=== PATIENT | female | born 1985 | race Caucasian/White ===

== ENCOUNTER 2019-06-27 06:00 | Outpatient (RCR) | payer MEDICARE, MEDICAID, SELFPAY | END 2019-07-27 00:01 | LOC: SPT 06:00 | PROVIDERS: Family Provider Internal Medicine; Visit Provider Orthopaedic Surgery | DX: M76.52 Patellar tendinitis, left knee (principal) | CPT/HCPCS: 97110 ×4; 97164 ==

== ENCOUNTER 2019-07-28 06:00 | Outpatient (RCR) | payer MEDICARE, MEDICAID, SELFPAY | END 2019-08-27 23:59 | disposition home or self-care (01) | LOC: SPT 06:00 | PROVIDERS: Family Provider Internal Medicine; PCP Internal Medicine; Visit Provider Orthopaedic Surgery | DX: M76.52 Patellar tendinitis, left knee (principal) ==

== ENCOUNTER → 2020-05-01 12:23 | Outpatient (BNVA) | payer MEDICARE, MEDICAID, SELFPAY | PROVIDERS: Family Provider Internal Medicine; PCP Internal Medicine; Visit Provider Internal Medicine Cardiovascular Disease | DX: E78.2 Mixed hyperlipidemia (principal); R25.2 Cramp and spasm; I49.9 Cardiac arrhythmia, unspecified; I10 Essential (primary) hypertension; R06.02 Shortness of breath | CPT/HCPCS: 80048; 80061; 80076; 82552 ==

== ENCOUNTER 2020-08-30 19:05 | Outpatient (CLI) | payer MEDICARE, MEDICAID, SELFPAY ==
[2020-09-01 15:08] LABS: Quest SARS-CoV-2 RNA NOT DETECTED (NOT DETECTED)
== END 2020-08-30 19:06 | disposition home or self-care (01) ==
PROVIDERS: PCP Internal Medicine; Visit Provider Family Medicine
DX: Z01.812 Encounter for preprocedural laboratory examination (principal)
CPT/HCPCS: 87635

== ENCOUNTER 2020-09-01 06:13 | Day surgery (SDC) | payer MEDICARE, MEDICAID, SELFPAY ==
[2020-08-30 13:16] VITALS: BMI 39.7
[2020-09-01 06:48] LABS: OR HCG Qualitative Urine Negative (Negative)
[2020-09-01 06:58] VITALS: BP 116/83; PULSE 84; RESP 18; TEMP 36.7; O2SAT 99
[2020-09-01] MEDS: sodium chloride 0.9% 1,000 ML 30 ML IV (07:15)
--- NOTE | 2020-09-01 07:20 | ANES.PREANE2 ---
Pre-Anesthetic Assessment Pre-Anesthetic Assessment: Height/Weight: Height 1.5 m Weight 89.358 kg Temp Pulse Resp BP Pulse Ox 98.1 F 84 18 116/83 99 09/01/20 06:58 09/01/20 06:58 09/01/20 06:58 09/01/20 06:58 09/01/20 06:58 Preop Diagnosis: polyps Proposed Procedure: Operation Date: 09/01/20 07:15 Proposed Procedures p Colonoscopy K63.5(Not Applicable) - Wilfrid Gama MD Familial anesthetic complications: None Was Beta Дмитрий taken within 24 hours: Yes Last intake: Intake Last Liquid Date 08/31/20 Last Solid Date 08/30/20 Social: Social History: No alcohol and No tobacco Exam: Pre-Anes Outpt Exam: alert, oriented x 3, clear to auscultation bilaterally and regular rate & rhythm Airway: Cervical ROM: WNL MP: 4 Dentition: Partials Additional comments: small mouth opening, large neck Pulmonary: Pulmonary: Sleep apnea CV/HEM: CV/HEM: HTN Comments: PVCs w/ palpitaiton on metoprolol Metabolic: Metabolic: Morbid obesity Neuropsych: Neuropsych: Seizure Anesthetic Plan: ASA status: 3 Anesthesia: MAC Risk of > 500 ml blood loss (7ml/kg in children): No Meds/Allergies Current Medications: Current Medications Generic Name Dose Route Start Last Admin Trade Name Freq PRN Reason Stop Dose Admin Sodium Chloride 1,000 mls @ 30 ml s/hr 09/01/20 06:45 09/01/20 07:15 Sodium Chloride 0.9% IV 09/02/20 06:44 30 mls/hr .Q24H JESSICA Administration PFSH Anesthesia PFSH: Medical History Chronic chest pain Colon polyps Depression GERD (gastroesophageal reflux disease) Hemorrhoid Hyperlipidemia Hypertension Muscle cramps Palpitations Seizure disorder Ventricular arrhythmia Surgical History History of dilation and curettage S/P thyroid surgery Family History Other CAD (coronary artery disease) Cancer Diabetes Hyperlipidemia Hypertension Social History Smoking and tobacco status: never smoked Alcohol intake: never Data Anesthesia Other Labs: Laboratory Results - last 48 hr 09/01/20 06:41 Urine HCG, Qual Negative Cardiac Studies: No Data to Display
--- NOTE | 2020-09-01 07:31 | PM.OPSURHP ---
Providers/Chief Complaint Admitting Physician: Wilfrid Gama Primary Care Provider: Kory Jacobson DO Chief Complaint: colonoscopy History of Present Illness Mara Shannon is a 35 year old female with a history of a colon polyps on a colonoscopy that was performed 5 years ago. Review of Systems General: Reports: 10 or more systems reviewed and unremarkable except in HPI and below Const: Denies: fever(s) Card: Denies: chest pain or irregular heart rhythm Resp: Denies: dyspnea Medications/Allergies Home Medications Medication Instructions Recorded Confirmed Last Taken Type metoprolol tartrate 50 mg tablet 50 mg PO BID #60 tab 09/16/19 09/01/20 08/31/20 Rx divalproex 500 mg tablet,delayed 500 mg PO TID tab 10/07/19 09/01/20 08/31/20 History release norgestimate 0.18 mg/0.215 mg/0.25 1 tab PO DAILY 10/19/19 09/01/20 08/31/20 History mg-ethinyl estradiol 25 mcg tablet sertraline 100 mg tablet 100 mg PO DAILY 10/19/19 09/01/20 08/31/20 History ezetimibe 10 mg tablet 10 mg PO DAILY #90 tab 05/04/20 09/01/20 08/31/20 Rx magnesium oxide 400 mg PO DAILY #90 tab 05/08/20 09/01/20 08/31/20 Rx simvastatin 80 mg tablet See Rx Instructions .ROUTE 08/21/20 09/01/20 08/31/20 Rx .COMPLEX #90 tab Allergies Allergy/AdvReac Type Severity Reaction Status Date / Time Penicillins Allergy Unknown unknown Verified 09/01/20 06:55 amoxicillin [From Augmentin] Allergy hives Verified 09/01/20 06:55 carbamazepine [From Tegretol] Allergy ADR-Seizure Verified 09/01/20 06:55 cephalexin Allergy ADR-Seizure Verified 09/01/20 06:55 clavulanic acid Allergy hives Verified 09/01/20 06:55 [From Augmentin] clindamycin Allergy ALGY-Hives Verified 09/01/20 06:55 cyclobenzaprine Allergy ADR-Itching Verified 09/01/20 06:55 topiramate [From Topamax] Allergy ADR-Seizure Verified 09/01/20 06:55 tramadol Allergy seizures Verified 09/01/20 06:55 PFSH PFSH: Medical History Chronic chest pain Colon polyps Depression GERD (gastroesophageal reflux disease) Hemorrhoid Hyperlipidemia Hypertension Muscle cramps Palpitations Seizure disorder Ventricular arrhythmia Surgical History History of dilation and curettage S/P thyroid surgery Family History Other CAD (coronary artery disease) Cancer Diabetes Hyperlipidemia Hypertension Social History Smoking and tobacco status: never smoked Alcohol intake: never Vital Signs Vitals Signs: Last Vital Signs Temp 98.1 F 09/01/20 06:58 Pulse 84 09/01/20 06:58 Resp 18 09/01/20 06:58 BP 116/83 09/01/20 06:58 Pulse Ox 99 09/01/20 06:58 Weight: Weight last 48 hrs Weight 197 lb Physical Exam Const: COMMON NORMALS: no acute distress and patient oriented x3 GENERAL APPEARANCE: cooperative, comfortable and well developed HENMT: COMMON NORMALS: normocephalic and moist oral mucous membranes HEAD & SCALP: normocephalic Chest: COMMONS NORMALS: normal inspection of the chest Resp: COMMON NORMALS: normal respiratory effort and clear to auscultation bilaterally AUSCULTATION: clear to auscultation bilaterally Cardio: COMMON NORMALS: regular rate, regular rhythm, No gallops present (Cardio), No murmurs present (Cardio) and No rub (Cardio) RATE: regular rate RHYTHM: regular rhythm Extremity: COMMON NORMALS: normal to inspection Neuro: COMMON NORMALS: patient oriented x3 and no focal motor deficits Skin: COMMON NORMALS: no rashes or lesions noted GENERAL SKIN EXAM: no rashes or lesions noted A&P Assessment and plan (1) History of colon polyps: We discussed the risk of bleeding, perforation, and sedation associated with a colonoscopy. The patient has no further questions and wishes to proceed. Status: Acute Coding Level of Care Code Acute Medical Collections Representative for [facility] Fwd Diagnoses History of colon polyps Z86.010
[2020-09-01 08:03] VITALS: BP 116/83; PULSE 84; RESP 18; TEMP 36.7; O2SAT 99
[2020-09-01 08:16] VITALS: BP 122/75; PULSE 70; RESP 18; O2SAT 96
--- NOTE | 2020-09-01 15:27 | ANE.PACU2 ---
Inpatient post-anesthesia follow up: Airway intact: Yes Vital signs: Temperature 98.1 F Pulse Rate 70 Respiratory Rate 18 Blood Pressure 122/75 Pulse Oximetry 96 Oxygen Delivery Me thod Room Air Oxygen Flow Rate Fraction of Inspir ed Oxygen Hydration adequate: Yes Nausea and vomiting: No Pain level: 1 Mental status: Baseline
== END 2020-09-01 08:23 | disposition home or self-care (01) ==
PROVIDERS: Anesthesiology; PCP Internal Medicine; Visit Provider Family Medicine
PROC: 0DJD8ZZ Inspection of Lower Intestinal Tract, Via Natural or Artificial Opening Endoscopic (ICD-10-PCS; CPT 45378; principal; 2020-09-01 07:15)
DX: K62.1 Rectal polyp (principal); Z86.010 Personal history of colon polyps; F32.9 Major depressive disorder, single episode, unspecified; K21.9 Gastro-esophageal reflux disease without esophagitis; E78.5 Hyperlipidemia, unspecified; I10 Essential (primary) hypertension; Z82.49 Family history of ischemic heart disease and other diseases of the circulatory system; Z83.3 Family history of diabetes mellitus; E66.01 Morbid (severe) obesity due to excess calories; G47.33 Obstructive sleep apnea (adult) (pediatric)
CPT/HCPCS: 12345; 45380; 84703; 88305; J2704; J7030

== ENCOUNTER → 2021-05-01 11:11 | Outpatient (BNVA) | payer MEDICARE, MEDICAID, SELFPAY | PROVIDERS: PCP Internal Medicine; Visit Provider Internal Medicine Cardiovascular Disease | DX: E78.2 Mixed hyperlipidemia (principal) | CPT/HCPCS: 80061 ==

== ENCOUNTER → 2021-10-31 13:58 | Outpatient (BNVA) | payer MEDICARE, MEDICAID, SELFPAY | PROVIDERS: PCP Internal Medicine; Visit Provider Internal Medicine Cardiovascular Disease | DX: E78.2 Mixed hyperlipidemia (principal); R06.02 Shortness of breath; I49.9 Cardiac arrhythmia, unspecified; R07.9 Chest pain, unspecified | CPT/HCPCS: 99213 ==

== ENCOUNTER 2022-04-15 13:54 | Outpatient (CLI) | payer MEDICARE, MEDICAID, SELFPAY ==
[2022-04-15 14:52] LABS: Basophils # 0.1 10^3/uL (0.0-0.1); Basophils % 0.9 %; Eosinophils # 0.1 10^3/uL (0.0-0.8); Eosinophils % 1.2 %; Hematocrit 44.5 % (37.0-47.0); Hemoglobin 14.5 g/dL (11.5-15.3); Lymphocytes # 2.3 10^3/uL (0.8-4.8); Lymphocytes % 30.1 %; Mean Corpuscular HGB Conc 32.6 g/dL (30.0-36.0); Mean Corpuscular Hemoglobin 28.9 pg (28.0-34.0); Mean Corpuscular Volume 88.6 fl (81-99); Mean Platelet Volume 9.8 fL (7.4-10.4); Monocytes # 0.6 10^3/uL (0.2-0.9); Monocytes % 7.4 %; Neutrophils # 4.52 10^3/uL (1.8-7.7); Nucleated Red Blood Cells % 0 %; Platelet Count 318 10^3/cmm (130-400); Red Blood Count 5.02 10^6/uL (4.1-5.3); Red Cell Distribution Width 12.7 % (12.1-15.1); White Blood Count 7.5 10^3/uL (4.0-10.0)
[2022-04-15 15:10] LABS: Valproic Acid Level 32.9 ug/mL (50-100)
== END 2022-04-15 13:55 | disposition home or self-care (01) ==
LOC: LAB 13:58
PROVIDERS: PCP Family Medicine; Visit Provider Psychiatry & Neurology Neurology
DX: G40.309 Generalized idiopathic epilepsy and epileptic syndromes, not intractable, without status epilepticus (principal)
CPT/HCPCS: 80164; 85025

== ENCOUNTER → 2022-04-24 09:34 | Outpatient (BNVA) | payer MEDICARE, MEDICAID, SELFPAY | PROVIDERS: PCP Family Medicine; Visit Provider Internal Medicine Cardiovascular Disease | DX: I49.8 Other specified cardiac arrhythmias (principal); G89.29 Other chronic pain; R07.89 Other chest pain; I10 Essential (primary) hypertension; E78.2 Mixed hyperlipidemia | CPT/HCPCS: 93005; 99214 ==

== ENCOUNTER → 2022-10-24 09:48 | Outpatient (BNVA) | payer MEDICARE, MEDICAID, SELFPAY | PROVIDERS: PCP Internal Medicine; Visit Provider Internal Medicine Cardiovascular Disease | DX: R10.13 Epigastric pain (principal); E78.2 Mixed hyperlipidemia; I10 Essential (primary) hypertension; I49.8 Other specified cardiac arrhythmias | CPT/HCPCS: 93005; 99214 ==

== ENCOUNTER 2022-10-28 11:01 | Outpatient (CLI) | payer MEDICARE, MEDICAID, SELFPAY ==
[2022-10-28 13:56] LABS: Alanine Aminotransferase 25 U/L (0-33); Albumin Level 4.4 g/dL (3.5-5.2); Alkaline Phosphatase 58 U/L (35-105); Aspartate Amino Transferase 17 U/L (0-32); Cholesterol 240 mg/dL (0-200); Globulin 3.1 g/dL (1.3-4.6); HDL Cholesterol 32 mg/dL (60-100); LDL Cholesterol Calculated 155 mg/dL (50-129); LDL HDL Ratio 4.84 RATIO (0.00-3.22); Total Bilirubin 0.3 mg/dL (0.15-1.2); Total Protein 7.5 g/dL (6.6-8.7); Triglycerides 264 mg/dL (0-150)
== END 2022-10-28 11:02 | disposition home or self-care (01) ==
LOC: LAB 11:03
PROVIDERS: PCP Internal Medicine; Visit Provider Internal Medicine Cardiovascular Disease
DX: E78.2 Mixed hyperlipidemia (principal)
CPT/HCPCS: 36415; 80061; 80076

== ENCOUNTER 2023-02-03 07:06 | Outpatient (CLI) | payer MEDICARE, MEDICAID, SELFPAY ==
--- NOTE | 2023-02-03 07:15 | CT_ITS ---
WS: [id number] CT ABDOMEN PELVIS TECHNIQUE: Contrast-enhanced CT of the abdomen and pelvis with coronal and sagittal reformatted image s. CLINICAL INFORMATION: CHRONIC CONSTIPATION COMPARISON: CT 2014 DLP: 1631.[address] scans at [facility] [place] use at least one of these dose optimization techniques: automated e xposure control; mA and/or kV adjustment per patient size (includes targeted exams where dose is matc hed to clinical indication); or iterative reconstruction. FINDINGS: Lung bases are well aerated. Mild hepatomegaly. Diffuse fatty infiltration liver. Gallbladder appears normal. Normal GE junction. Normal spleen. Normal pancreatic parenchymal enhancement. Adrenal glands are normal. Normal renal parenchymal enhancement. No hydronephrosis. Small nonobstructing RIGHT serina l parenchymal calculus measuring 5 mm. No hydronephrosis in either kidney. Mild rectal distention with constipation. Colon is otherwise within normal limits. Sigmoid colon appe ars normal.No evidence of high-grade small or large bowel obstruction. Tiny fat-containing umbilical hernia. No free fluid in the abdomen or pelvis. Multifollicular ovaries bilaterally. CT/CT abdomen pelvis w con* [id number] IMPRESSION: 1. Mild hepatomegaly with diffuse fatty infiltration liver. 2. Moderate rectosigmoid distention with constipation. Sigmoid colon is otherw ise normal in appearance. 3. No evidence of high-grade small or obstruction. 4. Nonobstructing 5 mm RIGHT renal parenchymal calculus. 5. No hydronephrosis in either kidney. 6. Multifollicular ovaries bilaterally.
[2023-02-03] MEDS: iohexol 350 mg/mL 500 mL Btl (per mL) PO (08:38)
[2023-02-03] MEDS: iohexol 350 mg/mL 500 mL Btl (per mL) IV (09:09)
== END 2023-02-03 07:07 | disposition home or self-care (01) ==
PROVIDERS: PCP Internal Medicine; Visit Provider Internal Medicine
DX: K59.09 Other constipation (principal); K76.0 Fatty (change of) liver, not elsewhere classified; R16.0 Hepatomegaly, not elsewhere classified; N20.0 Calculus of kidney
CPT/HCPCS: 74177; Q9967

== ENCOUNTER 2023-05-14 08:10 | Outpatient (CLI) | payer MEDICARE, MEDICAID, SELFPAY ==
--- NOTE | 2023-05-14 | ECG_ITS ---
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 Interpretive Statements NAME OF STUDY: LEXISCAN SESTAMIBI STRESS TEST INDICATION: Atypical Chest Pain, PROCEDURE: At the baseline, the EKG revealed rhythm with a normal ST Ts. The baseline heart was 80 bpm with a blood pressue of 123/92 mm of Hg Lexiscan was infused over a period of 20 seconds. A total of 0.4 milligrams of Lexiscan was infused. The stress phase was continued for a total of 5 minutes. Heart rate at the end of the stress phase was 109 bpm with a blood pressure 117/89 mm of Hg. The EKG at the peak infusion revealed some nonspecific T wave change. Sestamibi was injected 20 seconds after the Lexiscan infusion. Heart rate at the end of the recovery phase was 102 bpm with a blood pressure of 117/87 mm of Hg. CONCLUSION: 1. No significant EKG changes with the LexiScan infusion 2. No LexiScan induced chest pain or cardiac arrhythmia 3. Normal blood pressure and heart rate response 4. Sestamibi/sestamibi perfusion scan pending; see separate report. Electronically Signed On 05-16-2023 15:31:17 CDT by Dat Randle M.D. [id number]
[2023-05-14 08:22] VITALS: BMI 38.3
--- NOTE | 2023-05-14 08:28 | NMCV_ITS ---
NM tierney perf SPECT r/s* [id number] Mara Shannon Age: 38 Gender: F : 1985 Exam Date: 05/14/2023 09:06 Ordering Phys: Franck López MD Technologist: ROVERTO Lu Exam Location: [facility] Indications: CHEST PAIN STRESS TEST Please see separate stress test report in [facility] for full findings IMAGE PROTOCOL Rest/Stress 1 Lexiscan Day Radiopharmaceutical Dose (mCi) Administration Site Administered by Rest: Tc-99m 10.8 IV Quirino Hanson, [employer] DESIGNER Sestamibi Stress:Tc-99m 32.8 IV Quirino Hanson, [employer]AYOUT DESIGNER Sestamibi Rest: 14-May-2023 60 Discovery 630 Stress: 14-May-2023 30 Discovery 630 0.4mg Lexiscan. Images obtained in supine and prone position. SPECT RESULTS Technical Quality: Excellent Raw Data Analysis: Normal Image Corrections: No attenuation or motion correction applied Summed Stress Score: 1 Summed Rest Score: 0 Summed Difference Score: 1 PERFUSION FINDINGS A small area of slightly decreased tracer tach was noted in the apical lateral region. No significant reversibility was noted with the SPECT imaging. However with the polar plot, a subtle area of reversibility was noted FUNCTIONAL RESULTS (calculated via Gated SPECT) Stress Image LV EF (%): 67 Stress EDV (mL):69 TID: 1.03 Stress ESV (mL):23 FUNCTIONAL FINDINGS: Segmental wall motion analysis revealed mild hypokinesia of the LV apex IMPRESSIONS 1. Myocardial perfusion imaging revealing very small area of inconsistent reversible defect in the apical lateral region , suggesting possible ischemia in the circumflex territory. However the reliability of this finding is questionable because of the inconsistency. 2. Normal LV ejection fraction of 67%. 3. LV wall motion analysis revealing no gross wall motion abnormalities. 4. Normal LV volume No similar previous studies are available for comparison Dr Dat Randle MD [facility] (Electronically Signed) Final Date: 15 May 2023 16:51 S
[2023-05-14] MEDS: regadenoson 0.4 Mg/5 ml Syringe IVP (09:43)
[2023-05-14 10:05] VITALS: BP 117/87; PULSE 99
== END 2023-05-14 08:11 | disposition home or self-care (01) ==
LOC: CDL 08:11
PROVIDERS: PCP Internal Medicine; Visit Provider Internal Medicine
DX: R07.89 Other chest pain (principal)
CPT/HCPCS: 36415; 78452; 93017; 96374; 99214; A9500; J2785

== ENCOUNTER 2023-11-18 12:37 | Outpatient (CLI) | payer MEDICARE, MEDICAID, SELFPAY ==
--- NOTE | 2023-11-18 12:50 | XRR_ITS ---
PROCEDURE INFORMATION: Exam: XR Right Elbow Exam date and time: 11/18/2023 12:57 PM Age: 38 years old Clinical indication: Pain and injury or trauma; Fall; Blunt trauma (contusions or hematomas); Elbow; Right; Injury date: 2 weeks ago; Injury details: Fell from porch; Additional info: Elbow pain, right TECHNIQUE: Imaging protocol: Radiologic exam of the right elbow. Views: 1 or 2 views. COMPARISON: No relevant prior studies available. FINDINGS: Bones/joints: No significant pathology. Soft tissues: Normal. XR/XR elbow RT 2V [id number] IMPRESSION: No significant pathology.
== END 2023-11-18 12:38 | disposition home or self-care (01) ==
PROVIDERS: PCP Internal Medicine; Visit Provider Internal Medicine
DX: M25.521 Pain in right elbow (principal)
CPT/HCPCS: 73070

== ENCOUNTER → 2023-12-11 10:02 | Outpatient (BNVA) | payer MEDICARE, MEDICAID, SELFPAY | PROVIDERS: PCP Internal Medicine; Visit Provider Internal Medicine Cardiovascular Disease | DX: E78.2 Mixed hyperlipidemia (principal); I10 Essential (primary) hypertension; K21.9 Gastro-esophageal reflux disease without esophagitis; I49.8 Other specified cardiac arrhythmias | CPT/HCPCS: 99214 ==

== ENCOUNTER → 2024-02-02 11:30 | Outpatient (BNVA) | payer MEDICARE, MEDICAID, SELFPAY | PROVIDERS: PCP Internal Medicine; Visit Provider Nurse Practitioner Women's Health | DX: Z12.4 Encounter for screening for malignant neoplasm of cervix (principal); Z01.419 Encounter for gynecological examination (general) (routine) without abnormal findings | CPT/HCPCS: 87624 ==

== ENCOUNTER → 2025-02-03 16:32 | Outpatient (BNVA) | payer MEDICARE, MEDICAID, SELFPAY | PROVIDERS: PCP Internal Medicine; Visit Provider Nurse Practitioner Women's Health | DX: Z01.419 Encounter for gynecological examination (general) (routine) without abnormal findings (principal); L68.0 Hirsutism | CPT/HCPCS: 80053; 82306; 83036; 84402; 84403; 85025 ==

== ENCOUNTER 2025-02-07 09:49 | Outpatient (CLI) | payer MEDICARE, MEDICAID, SELFPAY ==
--- NOTE | 2025-02-07 09:40 | MM_ITS ---
WS: [id number] SCREENING DIGITAL TOMOSYNTHESIS MAMMOGRAM WITH CAD HISTORY: Z12.39 - Encounter for other screening for malignant neop... COMPARISON: None available. Bilateral CC and MLO with tomosynthesis views submitted. Synthetic mammography reviewed. Computer aided detection analyzed. Breast composition: There are scattered areas of fibroglandular density. No suspicious masses, microcalcifications or architectural distortion. MM/MM scr BI tomosynthesis [id number] IMPRESSION: BI-RADS: 2 - Benign. FOLLOW UP: 1 Year Follow-up
== END 2025-02-07 09:50 | disposition home or self-care (01) ==
LOC: RAD 09:52
PROVIDERS: PCP Internal Medicine; Visit Provider Nurse Practitioner Women's Health
DX: Z12.31 Encounter for screening mammogram for malignant neoplasm of breast (principal); Z12.39 Encounter for other screening for malignant neoplasm of breast; R92.323 Mammographic fibroglandular density, bilateral breasts
CPT/HCPCS: 77063; 77067

== ENCOUNTER → 2025-03-01 13:58 | Outpatient (BNVA) | payer OTHER, SELFPAY | PROVIDERS: PCP Internal Medicine; Visit Provider Internal Medicine Cardiovascular Disease | DX: E78.2 Mixed hyperlipidemia (principal); I10 Essential (primary) hypertension; K21.9 Gastro-esophageal reflux disease without esophagitis; I49.8 Other specified cardiac arrhythmias | CPT/HCPCS: 99214 ==